=== PATIENT | male | born 1995 | race Two or more races ===

== ENCOUNTER 2024-04-27 16:41 | Emergency (ER) | payer SELFPAY ==
[~2024-04-27] VITALS: Ht 165.1 cm; Wt 75.0 kg
[2024-04-27 17:15] LABS: BILIRUBIN,URINE NEGATIVE (Neg); CLARITY,URINE CLOUDY (Clear); COLOR,URINE YELLOW (Yellow); GLUCOSE, URINE NEGATIVE (Neg); KETONES,URINE NEGATIVE (Neg); LEUKOCYTE ESTERASE ,URINE SMALL (Neg); OCCULT BLOOD,URINE LARGE (Neg); PROTEIN,URINE TRACE mg/dl (Neg); UROBILINOGEN,URINE 0.2 E.U/dL (0.2-1.0)
[2024-04-27 17:16] LABS: NITRITES, URINE NEGATIVE (Neg); UA COLLECTION TYPE VOIDED
[2024-04-27 17:27] LABS: BACTERIA,URINE 1+ /HPF (Neg); RBC,URINE TNTC /HPF (0-2); SQUAMOUS EPITHELIAL CELL,UR FEW /LPF (FEW)
[2024-04-27] MEDS: azithromycin 250mg tablet PO ONE (17:41)
[2024-04-27] MEDS: CefTRIAXone 500MG IM Kit w/LIDOcaine IM ONE (17:41)
[2024-04-27 18:09] VITALS: BP 136/76; PULSE 80; RESP 16; TEMP 98.2; O2SAT 99
== END 2024-04-27 18:09 | disposition home or self-care (01) ==
LOC: ER 16:43
DX: N39.0 Urinary tract infection, site not specified (principal)
CPT/HCPCS: 81001; 87088; 96372; 99283; J0696